=== PATIENT | male | born 1980 | race Hispanic/Latino ===

== ENCOUNTER 2017-12-17 13:15 | Emergency (ER) | payer OTHER ==
[~2017-12-17] VITALS: Ht 172.7 cm; Wt 107.2 kg
[2017-12-17] MEDS ORDERED: CYCLOBENZAPRINE HCL 10 MG TAB PO ONE (14:00)
[2017-12-17] MEDS ORDERED: IBUPROFEN 400 MG TAB PO ONE (14:00)
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
== END 2017-12-17 17:47 | disposition home or self-care (01) ==
LOC: FSED 13:15
DX: S00.03XA Contusion of scalp, initial encounter (principal); M54.2 Cervicalgia; S16.1XXA Strain of muscle, fascia and tendon at neck level, initial encounter; R51 Headache; M54.5 Low back pain; M79.652 Pain in left thigh; M79.651 Pain in right thigh; V57.5XXA Driver of pick-up truck or van injured in collision with fixed or stationary object in traffic accident, initial encounter; Y92.488 Other paved roadways as the place of occurrence of the external cause
CPT/HCPCS: 72125; 81003; 99283

== ENCOUNTER 2021-04-04 16:52 | Emergency (ER) | payer SELFPAY ==
[~2021-04-04] VITALS: Ht 172.7 cm; Wt 104.3 kg
[2021-04-04] MEDS ORDERED: LIDOCAINE HCL 2% LOCAL 20 ML VIAL INJ STA (17:23)
[2021-04-04] MEDS ORDERED: ACETAMINOPHEN500 MG PO (17:26)
[2021-04-04] MEDS ORDERED: DOXYCYCLINE MO100 M1 PO (17:26)
[2021-04-04] MEDS ORDERED: IBUPROFEN IB200 MG PO (17:26)
== END 2021-04-04 18:00 | disposition home or self-care (01) ==
LOC: FSED 16:57
DX: L02.413 Cutaneous abscess of right upper limb (principal); L72.3 Sebaceous cyst
CPT/HCPCS: 99283